=== PATIENT | male | born 1985 ===

== ENCOUNTER 2018-10-13 12:26 | Inpatient (IN) | payer MEDICAID, OTHER ==
[2018-10-13 12:26] VITALS: BMI 25.6
[2018-10-13 13:07] LABS: BASO # 0.1 K/uL (0.0-0.2); BASO % 0.5 % (0.0-2.0); EOS # 0.2 K/uL (0.0-0.7); EOS % 1.7 % (0.0-4.0); LYMPH % 26.4 % (20.0-40.0); MEAN CELL VOLUME 89.2 fL (80.0-94.0); MEAN CORPUSCULAR HEMOGLOBIN 30.7 pg (27.0-31.0); MEAN CORPUSCULAR HGB CONC 34.4 g/dL (33.0-37.0); MEAN PLATELET VOLUME 8.8 fL (7.2-11.7); MONO # 1.1 K/uL (0.0-0.8); MONO % 9.6 % (0.0-10.0); NEUT % 61.8 % (50.0-75.0); RBC 4.89 Mil/uL (4.40-5.90); RED CELL DISTRIBUTION WIDTH 12.8 % (11.5-14.5); WHITE BLOOD COUNT 11.4 K/uL (4.8-10.8)
[2018-10-13 13:20] LABS: ALB/GLOB RATIO 1.4 (1.0-2.1); ALBUMIN 4.9 g/dL (3.5-5.0); ALT/SGPT 15 U/L (21-72); AST/SGOT 30 U/L (17-59); BLOOD UREA NITROGEN 18 mg/dL (9-20); CALCIUM 9.6 mg/dl (8.6-10.4); GFR NON-AFRICAN AMERICAN > 60
--- NOTE | 2018-10-13 14:20 | C.PDOC ---
History Of Present Illness 33 year old male with PMHx of bipolar disorder, depression, schizophrenia, and polysubstance abuse presents to the ED for evaluation of suicidal and homocidal ideation and auditory hallucinations. Reports voices have been talking to him like in a normal conversation for the last 2 weeks. However, he reports the voices recently became aggressive and have been telling to harm himself and others. Notes he cut himself on the posterior aspect of his left forearm. Also complains of headache. Reports he has been using cocaine for the last 2 weeks. Denies any neck pain, shortness of breath, dizziness, lightheadedness, shortness of breath, or any other symptoms. Time Seen by Provider: 10/13/18 12:28 Chief Complaint (Nursing): Psychiatric Evaluation History Per: Patient History/Exam Limitations: no limitations Onset/Duration Of Symptoms: Days Current Symptoms Are (Timing): Still Present Suicide/Self Injury Attempted (Context): Cut Wrists Modifying Factor(s): Cocaine Associated Symptoms: Suicidal Thoughts Past Medical History Reviewed: Historical Data, Nursing Documentation, Vital Signs Vital Signs: Last Vital Signs Temp 97.8 F 10/13/18 12:34 Pulse 70 10/13/18 12:34 Resp 18 10/13/18 12:34 BP 118/79 10/13/18 12:34 Pulse Ox 99 10/13/18 12:34 Primary Care Provider: FAMILY PROVIDER,NO - Medical History PMH: Anxiety, Bipolar Disorder, Depression, Schizophrenia Denies: Alzheimer's Disease, Anemia, Arthritis, Asthma, Atrial Fibrillation, Bronchitis, Cardia Arrhythmia, CHF, COPD, Crohn's Disease, Dementia, Diabetes, Diverticulitis, Emphysema, Fractures, Gastritis, Gall Bladder Disease, Hepatitis, HIV, HTN, Hypercholesterolemia, Hyperthyroidism, Hypothyroidism, Kidney Stones, Migraine, Mitral Valve Prolapse, Multiple Sclerosis, Osteoporosis, Pancreatitis, Parkinson's Disease, Peripheral Edema, Personality D isorder, Pneumonia, Pulmonary Embolism, Chronic Kidney Disease, Rheumatoid Arthritis, Seizures, Sickle Cell Disease, Sexually Transmitted Disease, Sleep Apnea, TIA Surgical History: No Surg Hx Denies: Carotid Endarterectomy, Cholecystectomy, Coronary Stent, Pacemaker, Tonsillectomy - [facility] Procedures INDIVIDUAL PSYCHOTHERAPY, SUPPORTIVE (07/29/16) MEDICATION MANAGEMENT (06/28/15) Family History: States: No Known Family Hx - Social History Hx Alcohol Use: Yes Hx Substance Use: Yes (cocaine, weed) - Immunization History Hx Tetanus Toxoid Vaccination: No Hx Influenza Vaccination: No Hx Pneumococcal Vaccination: No Review Of Systems Constitutional: Negative for: Fever, Chills Respiratory: Negative for: Shortness of Breath Gastrointestinal: Negative for: Nausea, Vomiting, Diarrhea Musculoskeletal: Negative for: Neck Pain Skin: Positive for: Other (laceration to left forearm ) Neurological: Positive for: Headache, Other (auditory hallucinations ) Psych: Positive for: Suicidal ideation Physical Exam - Physical Exam Appears: Non-toxic, No Acute Distress, Other (cooperative, calm ) Skin: Warm, Dry, No Rash, Other (4.5cm shallow laceration to posterior aspect of left arm ) Head: Normacephalic Eye(s): bilateral: Normal Inspection, PERRL, EOMI Nose: Normal Oral Mucosa: Moist Neck: Supple Chest: Symmetrical Cardiovascular: Rhythm Regular Respiratory: Normal Breath Sounds, No Rales, No Rhonchi, No Wheezing Gastrointestinal/Abdominal: Soft, No Tenderness Extremity: Bilateral: Atraumatic, Normal Color And Temperature, Normal ROM Neurological/Psych: Oriented x3, Normal Speech Gait: Steady ED Course And Treatment - Laboratory Results Result Diagrams: 10/13/18 13:04 10/13/18 13:04 Lab Results: Total Bilirubin 0.4 mg/dL (0.2-1.3) 10/13/18 13:04 AST 30 U/L (17-59) 10/13/18 13:04 ALT 15 U/L (21-72) L 10/13/18 13:04 Alkaline Phosphatase 62 U/L (38-126) 10/13/18 13:04 Total Protein 8.3 g/dL (6.3-8.3) 10/13/18 13:04 Albumin 4.9 g/dL (3.5-5.0) 10/13/18 13:04 Globulin 3.4 gm/dL (2.2-3.9) 10/13/18 13:04 Albumin/Globulin Ratio 1.4 (1.0-2.1) 10/13/18 13:04 O2 Sat by Pulse Oximetry: 99 (RA) Pulse Ox Interpretation: Normal Medical Decision Making Medical Decision Making: Plan - UA - Bloodwork - Crisis Eval Pt evaluated by Crisis worked. Patient will be admitted to [facility] for SI/HI. Disposition - Disposition Disposition: HOSPITALIZED Disposition Time: 15:25 Condition: GUARDED Forms: [employer] ([place]) - Clinical Impression Clinical Impression: Schizophrenia, Suicidal ideation, Bipolar 1 disorder, depressed - Scribe Statement The provider has reviewed the documentation as recorded by the Scribe Sola Chen All medical record entries made by the Scribe were at my direction and personally dictated by me. I have reviewed the chart and agree that the record accurately reflects my personal performance of the history, physical exam, medical decision making, and the department course for this patient. I have also personally directed, reviewed, and agree with the discharge instructions and disposition. Decision To Admit - Pt Status Changed To: Hospital Disposition Of: Inpatient - Admit Certification Admit to Inpatient:: After my assessment, the patient will require hospitalization for at least two midnights. This is because of the severity of symptoms shown, intensity of services needed, and/or the medical risk in this patient being treated as an outpatient. - InPatient: Physician Admission Certification: I certify that this patient requires 2 or more midnights of care for the following reason:: needs inpatient admission - . Bed Request Type: Psychiatry Admitting Physician: Jonn Stinson Patient Diagnosis: Schizophrenia, Suicidal ideation, Bipolar 1 disorder, depressed
[2018-10-13 14:24] LABS: URINE BILIRUBIN NEGATIVE (NEGATIVE); URINE BLOOD NEGATIVE (NEGATIVE); URINE CLARITY Clear (Clear); URINE COLOR Yellow (YELLOW); URINE GLUCOSE (UA) NORMAL (Normal); URINE LEUKOCYTE ESTERASE NEG Leu/uL (Negative); URINE PROTEIN NEGATIVE (NEGATIVE)
[2018-10-13 14:31] LABS: BARBITURATES, UR NEGATIVE (NEGATIVE); BENZODIAZEPINES, UR NEGATIVE (NEGATIVE); OPIATES, UR NEGATIVE (NEGATIVE); PHENCYCLIDINE, UR NEGATIVE (NEGATIVE)
[2018-10-13] MEDS ORDERED: Bacitracin 500 Units/gm Oint Foilpak UD TOP ONE (18:46)
[2018-10-13] MEDS ORDERED: Bacitracin 500 Units/gm Oint Foilpak UD TOP PRN (19:30)
[2018-10-13] MEDS ORDERED: Bacitracin Ointment 30 GM TUBE TOP PRN (19:45)
--- NOTE | 2018-10-13 21:06 | PCM.BM ---
<Cherry Mena - Last Filed: 10/13/18 21:04> Treatment Plan Problems - Problems identified on initial assessmt Anxiety Date Initiated: 10/13/18 Time Initiated: 16:30 Assessment reference: NA Status: Active Hopelessness Date Initiated: 10/13/18 Time Initiated: 16:30 Assessment reference: NA Status: Active Suicidal Ideation Date Initiated: 10/13/18 Time Initiated: 16:30 Assessment reference: NA Status: Monitor Treatment assets and liabiliti Patient Assests: ADL independent, negotiates basic needs Patient Liabilities: poor support system, relationship conflicts, substance abuse (Cocaine, Percocet) - Milieu Protocol Maintain good personal hygiene: daily Encourage regular showers, daily Remind patient to perform daily oral care, every shift Assist patient to perform ADL's Conduct patient checks and document Observation sheet: Q15 minutes Maintain personal safety: every shift Educate patient to report safety concerns to staff, every shift Monitor environment for contraband/sharps Medication safety: Monitor for expected outcome, potential side effects: every shift, Assess barriers to learning: every shift, Assess readiness for medication education: every shift <Ishan Johns - Last Filed: 10/14/18 11:22> - Diagnosis (1) Bipolar affective, mixed, sev w/ psych Status: Acute Interventions: 10/14/18 11:23 * Assess/adjust medications daily and /or as needed * See patient on an individual basis 7x/week to assess level of manic behaviors and stability * Discuss risks, benefits, side effects and alternatives of medications * (2) Cannabis use disorder, severe, dependence Status: Acute Interventions: 10/14/18 11:23 * Assess 7x/week regarding severity of withdrawal * Educate regarding risks, benefits, side effects and alternatives of medications * Use Motivational Interviewing for abstinence * Use CBT for relapse prevention * Medication management for withdrawal symptoms * Encourage medication assisted treatment * <Nathalie Bolden - Last Filed: 10/14/18 13:16> Family Contact Family involvement: Famliy/SO not involved - Goals for Treatment Patient goals for treatment: "I need medication." Discharge/Continuing Care - Education Needs Education Needs: Patient Medication, Patient Coping Skills - Discharge Discharge Criteria: Tolerates medication w/o severe side effects, No longer exhibiting s/s of withdrawal, Reduction of target symptoms Discharge to:: Home - Treatment Team Participation Discussed with Family/SO: No Was Patient/Family/SO present at Treatment Team Meeting: Yes
[2018-10-13] MEDS: Benzocaine 10% Oral Anesthetic (12 ml) MM PRN (22:15)
--- NOTE | 2018-10-14 10:50 | PCM.PSYCH ---
Initial Psychiatric Evaluation - Initial Psychiatric Evaluation Type of Admission: Voluntary Legal Status: Capacity Chief Complaint (in patient's own words): I was depressed and suicidal.' History of Present Illness and Precipitating Events: Patient is a 33-year-old male, who came to the [facility] ED because of depressed mood and auditory hallucination telling him to kill himself. Patient has history of multiple inpatient psychiatric hospitalizations. He was last discharged from [facility] 3 years ago. As per the patient soon after discharge from the hospital he stopped taking medication. 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 He became increasingly depressed and suicidal so he came to the hospital to get help. Pt. reports that his mother abandoned him when he was 6 month old. Pt. paternal grandmother raised Pt. in [place]. Pt. admits feeling suicidal with the intent to use a razor to cut his wrist. He reports of hearing voices telling him to kill himself. He also reports of hallucinations and paranoia. He reports depressed mood, feelings of hopelessness, helplessness and worthlessness. He reports anhedonia and poor sleep. He also reports at times irritability, agitation, and racing thoughts. He also reports anxiety and panic attacks including shortness of breath, sweating and headaches. Past medical history None reported Current Medications: Active Medications Generic Name Dose Route Start Last Admin Trade Name Freq PRN Reason Stop Dose Admin Bacitracin 1 gm 10/13/18 19:45 10/13/18 22:08 Bacitracin TOP 1 applic Q6H PRN Administration skin abrasion Benzocaine 1 ml 10/13/18 21:41 10/13/18 22:15 Anbesol MM 1 ml Q6H PRN Administration Tooth pain Haloperidol 5 mg 10/13/18 20:23 Haldol PO Q4H PRN Agitation Hydroxyzine HCl 25 mg 10/13/18 18:40 Atarax PO Q4H PRN Anxiety Ibuprofen 600 mg 10/13/18 20:23 10/13/18 21:57 Motrin Tab PO 600 mg Q6H PRN Administration Pain, moderate (4-7) Nicotine 1 patch 10/14/18 10:00 10/14/18 10:34 Nicoderm Cq TD Not Given DAILY PERFECTO Pneumococcal Polyvalent Vaccine 0.5 ml 10/16/18 10:00 Pneumovax 23 Vaccine IM 10/16/18 10:01 .ONCE ONE Risperidone 1 mg 10/13/18 22:00 10/13/18 21:57 Risperdal Tab PO 1 mg HS PERFECTO Administration Trazodone HCl 100 mg 10/13/18 20:23 10/13/18 22:15 Desyrel PO 100 mg HS PRN Administration Insomnia Past Psychiatric History - Past Psychiatric History Previous Treatment History: Inpatient Pertinent Medical Hx (Current Medical&Sleep Prob, Allergies): Allergies Allergy/AdvReac Type Severity Reaction Status Date / Time No Known Allergies Allergy Verified 10/13/18 12:33 No Known Home Med 10/13/18 Review of Systems - Review of Systems All systems: reviewed and no additional remarkable complaints except - Psychiatric Psychiatric: Anxiety, Auditory Hallucinations, Irritability, Mood Swings, Paranoia, Suicidal Ideation Mental Status Examination - Personal Presentation Personal Presentation: Looks stated age - Affect Affect: Broad - Motor Activity Motor Activity: Psychomotor Agitation - Reliability in Providing Information Reliability in Providing Information: Poor, due to alteration in thoughts, Poor, due to altered mood - Speech Speech: Disorganized - Mood Mood: Anxious - Formal Thought Process Formal Thought Process: Hallucinations, Delusions, Paranoia, Loosening of associations, Flight of ideas - Hallucinations/Delusions Hallucinations: Visual, Auditory Delusions: Persecution - Obsessions/Compulsions Obsessions: No Compulsions: No - Cognitive Functions Orientation: Person, Place, Situation, Time Sensorium: Alert Attention/Concentration: Attentive Abstract Thinking: [place] Estimate of Intelligence: Below average Judgement: Imparied, as evidence by: Poor judgement, Imparied, as evidence by: Lack of insight into illness - Risk Risk: Suicidal, Diminished functioning - Limitations Limitations: Living alone DSM 5 DX - DSM 5 DSM 5 Diagnosis: Bipolar disorder mixed severe with psychotic features Cocaine use disorder moderate - Recommended/Plan of Treatment Treatment Recommendations and Plan of Treatment: Bipolar disorder mixed severe with psychotic features Cocaine use disorder moderate CBT Stabilization-supportive therapy and group therapy Trazodone for insomnia Hydroxyzine for anxiety Trileptal for mood stabilization Risperdal for psychosis
[2018-10-14] MEDS ORDERED: HYDROmorphone 0.5 mg/0.5 ml ISec ONE (11:19)
[2018-10-14] MEDS ORDERED: Amoxicillin-Clav 500-125 mg Tab PO SCH (11:30)
[2018-10-14] MEDS: Benzocaine 10% Oral Anesthetic (12 ml) MM PRN (11:41)
[2018-10-14] MEDS: Amoxicillin-Clav 875-125 mg Tab PO SCH ×2 (23:25→23:27)
[2018-10-15 07:18] VITALS: O2SAT 98
[2018-10-15] MEDS: Amoxicillin-Clav 875-125 mg Tab PO SCH ×2 (10:51→23:14)
--- NOTE | 2018-10-15 22:15 | PCM.PYCHPN ---
Psychiatric Progress Note - Psychiatric Progress Note Patient seen today, length of contact: 16 min Patient Chief Complaint: I was depressed and suicidal.' Medication Change: Yes Medical Record Reviewed: Yes Mental Status Examination - Cognitive Function Orientation: Person, Place, Situation, Time Memory: Intact Attention: WNL Concentration: Poor Association: WNL Fund of Knowledge: Poor - Mood Mood: Anxious - Affect Affect: Broad - Speech Speech: Soft - Formal Thought Process Formal Thought Process: Hallucinations, Delusions, Paranoia, Loosening of associations, Flight of ideas - Suicidal Ideation Suicidal Ideation: No - Homicidal Ideation Homicidal Ideation: No Goal/Treatment Plan - Goal/Treatment Plan Need for Continued Stay: Remain at risks for inpatient hospitalization Progress Toward Problem(s) and Goals/Treatment Plan: Bipolar disorder mixed severe with psychotic features Cocaine use disorder moderate CBT Stabilization-supportive therapy and group therapy Trazodone for insomnia Hydroxyzine for anxiety Trileptal for mood stabilization Risperdal for psychosis - Smoking Cessation Smoking Cessation Initiated: Yes
[2018-10-16 06:40] VITALS: TEMP 98.7
[2018-10-16] MEDS: Benzocaine 10% Oral Anesthetic (12 ml) MM PRN ×2 (09:04→22:16)
--- NOTE | 2018-10-16 09:34 | PCM.PYCHPN ---
Psychiatric Progress Note - Psychiatric Progress Note Patient seen today, length of contact: 16 min Patient Chief Complaint: I was depressed and suicidal.' Medication Change: Yes Medical Record Reviewed: Yes Mental Status Examination - Cognitive Function Orientation: Person, Place, Situation, Time Memory: Intact Attention: WNL Concentration: Poor Association: Loose Fund of Knowledge: WNL - Mood Mood: Anxious - Affect Affect: Broad - Speech Speech: Soft - Formal Thought Process Formal Thought Process: Loosening of associations, Flight of ideas - Suicidal Ideation Suicidal Ideation: No - Homicidal Ideation Homicidal Ideation: No Goal/Treatment Plan - Goal/Treatment Plan Need for Continued Stay: Remain at risks for inpatient hospitalization Progress Toward Problem(s) and Goals/Treatment Plan: Bipolar disorder mixed severe with psychotic features Cocaine use disorder moderate CBT Stabilization-supportive therapy and group therapy Trazodone for insomnia Hydroxyzine for anxiety Trileptal for mood stabilization Risperdal for psychosis
[2018-10-16] MEDS ORDERED: Pneumococcal 23-Valent Vaccine IM ONE (10:00)
[2018-10-16] MEDS: Amoxicillin-Clav 875-125 mg Tab PO SCH ×2 (10:45→22:41)
[2018-10-17 06:07] VITALS: BP 107/66; PULSE 63; RESP 20
--- NOTE | 2018-10-17 10:12 | PCM.PYCHDC ---
Mental Status Examination - Mental Status Examination Orientation: Person, Place, Situation, Time Memory: Intact Mood: Neutral Affect: Constricted Speech: Soft Attention: WNL Concentration: WNL Association: WNL Fund of Knowledge: WNL Formal Thought Process: No Impairment Description of patient's judgement and insight: good, fair Psychotic Thoughts and Behaviors: denies any AVH Suicidal Ideation: No Current Homicidal Ideation?: No Discharge Summary - Discharge Note Reason for Hospitalization: Patient is a 33-year-old male, who came to the [facility] ED because of depressed mood and auditory hallucination telling him to kill himself. Patient has history of multiple inpatient psychiatric hospitalizations. He was last discharged from [facility] 3 years ago. As per the patient soon after discharge from the hospital he stopped taking medication. 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 He became increasingly depressed and suicidal so he came to the hospital to get help. Pt. reports that his mother abandoned him when he was 6 month old. Pt. paternal grandmother raised Pt. in [place]. Pt. admits feeling suicidal with the intent to use a razor to cut his wrist. He reports of hearing voices telling him to kill himself. He also reports of hallucinations and paranoia. He reports depressed mood, feelings of hopelessness, helplessness and worthlessness. He reports anhedonia and poor sleep. He also reports at times irritability, agitation, and racing thoughts. He also reports anxiety and panic attacks including shortness of breath, sweating and headaches. Consultations:: List each consultation separately and include: 1. Reason for request. 2. Findings. 3. Follow-up Summary of Hospital Course include:: 1. Description of specific treatment plan utilized for patients during their course of treatmen. 2. Summarize the time- course for resolution of acute symptoms and/or regressed behaviors. 3. Describe issues identified and worked on during hospitalization. 4. Describe medication utilized. 5. Describe medical problems identified and treated. 6. Reassessment of suicide risk Summary of Hospital Course: Patient is a 33-year-old male, who came to the [facility] ED because of depressed mood and auditory hallucination telling him to kill himself. Patient has history of multiple inpatient psychiatric hospitalizations. He was last discharged from [facility] 3 years ago. As per the patient soon after discharge from the hospital he stopped taking medication. 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 He became increasingly depressed and suicidal so he came to the hospital to get help. Pt. reports that his mother abandoned him when he was 6 month old. Pt. paternal grandmother raised Pt. in [place]. Pt. admits feeling suicidal with the intent to use a razor to cut his wrist. He reports of hearing voices telling him to kill himself. He also reports of hallucinations and paranoia. He reports depressed mood, feelings of hopelessness, helplessness and worthlessness. He reports anhedonia and poor sleep. He also reports at times irritability, agitation, and racing thoughts. He also reports anxiety and panic attacks including shortness of breath, sweating and headaches. Past medical history None reported - Diagnosis (1) Bipolar affective, mixed, sev w/ psych Current Visit: Yes Status: Acute (2) Cannabis use disorder, severe, dependence Current Visit: No Status: Acute - Final Diagnosis (DSM 5) Condition upon Discharge: GUARDED DSM 5: Bipolar disorder mixed severe with psychotic features Cocaine use disorder moderate Disposition: HOME/ ROUTINE Follow-up Treatment Plan: Bipolar disorder mixed severe with psychotic features Cocaine use disorder moderate CBT Stabilization-supportive therapy and group therapy Trazodone for insomnia Hydroxyzine for anxiety Trileptal for mood stabilization Risperdal for psychosis Prescriptions/Medication Reconciliation: Benztropine [Cogentin] 1 mg PO BID #60 tab OXcarbazepine [Trileptal] 300 mg PO BID #60 tab risperiDONE [RisperDAL Tab] 1 mg PO BID #60 tab - Smoking Cessation Smoking Cessation Medication prescribed: No - Antipsychotic Medications Pt discharged on 2 or more routine antipsychotic medications: No
== END 2018-10-17 10:34 | disposition home or self-care (01) | DRG 753 ==
LOC: C.ER 12:26 → C.9E 15:31 → C.5E 16:10
PROVIDERS: ADMIT Psychiatry & Neurology Psychiatry; ATTEND Psychiatry & Neurology Psychiatry
PROC: GZ3ZZZZ Medication Management (ICD-10-PCS; principal; 2018-10-13)
PROC: GZHZZZZ Group Psychotherapy (ICD-10-PCS; 2018-10-13)
PROC: GZ56ZZZ Individual Psychotherapy, Supportive (ICD-10-PCS; 2018-10-13)
DX: F31.64 Bipolar disorder, current episode mixed, severe, with psychotic features (principal); R45.851 Suicidal ideations; F14.20 Cocaine dependence, uncomplicated; F12.20 Cannabis dependence, uncomplicated; F17.200 Nicotine dependence, unspecified, uncomplicated; F20.9 Schizophrenia, unspecified; F41.0 Panic disorder [episodic paroxysmal anxiety]; G47.00 Insomnia, unspecified